=== PATIENT | female | born 1990 | race African-American/Black ===

== ENCOUNTER 2021-01-05 12:42 | Emergency (ER) | payer MEDICAID ==
[~2021-01-05] VITALS: Ht 172.7 cm; Wt 100.0 kg
[2021-01-05] MEDS ORDERED: KETOROLAC 15MG/ML VIAL IM ONE (15:30)
[2021-01-05] MEDS: ACETAMINOPHEN 325MG TABLET PO ONE ×2 (16:24→16:30)
[2021-01-05] MEDS ORDERED: IBUP-2029 MT (19:10)
[2021-01-05 19:23] VITALS: BP 135/89
== END 2021-01-05 19:33 | disposition home or self-care (01) ==
LOC: ER 12:55
DX: S16.1XXA Strain of muscle, fascia and tendon at neck level, initial encounter (principal); X58.XXXA Exposure to other specified factors, initial encounter; Y93.89 Activity, other specified; Y92.89 Other specified places as the place of occurrence of the external cause; Y99.8 Other external cause status
CPT/HCPCS: 72040; 81025; 96372; 99283; J1885